=== PATIENT | female | born 1975 | race Caucasian/White ===

== ENCOUNTER 2017-01-25 23:29 | Emergency (ER) | payer OTHER ==
[~2017-01-25 23:29] MED LIST: AMOXIL500 MG PO; BACTRIM DS TABL1 TAB; BACTRIM DS TABL1 TAB PO; CLEOCIN HCL150 MG PO; CYCLOBENZAPRINE10 M1 PO; FLEXERIL10 MG PO; IBUPROFEN200 MG; IBUPROFEN800 MG PO; NORCO 5/325 TAB1 TAB PO; NORFLEX100 MG PO; PREDNISONE10 MG PO; SOMA350 MG PO; TRAMADOL HCL50 M2 PO; TRAMADOL HCL50 MG PO; ULTRAM50 M1 PO; ULTRAM50 MG PO; VICODIN 5/500 T1 TAB; VICODIN 5/500 T1 TAB PO; [UNRECOGNIZED DRUG - OTHER]
[2017-01-25] MEDS ORDERED: NO HOME MEDICATION XX (23:35)
[2017-01-25 23:58] LABS: BASO % 0.3 % (0-2); EOS % 1.4 % (0-7); EOSINOPHIL ABSOLUTE COUNT 0.1 tho/cmm (0.0-0.7); HCT-HEMATOCRIT 48.8 % (34.0-49.0); HGB-HEMOGLOBIN 17.1 gm/dl (12.0-15.5); IMMATURE GRANULOCYTES ABSOLUTE 0.02 tho/cmm (0-0.03); IMMATURE GRANULOCYTES PERCENT 0.2 % (0-0.3); LYMPH % 15.6 % (20-45); LYMPH ABSOLUTE COUNT 1.4 tho/cmm (0.8-4.5); MCH (MEAN CORPUSCULAR HGB) 36.4 pg (28.0-32.0); MCV (MEAN CELL VOLUME) 103.8 fl (82.0-96.0); MEAN PLATELET VOLUME 9.6 cmc (9.4-12.4); MONOCYTE ABSOLUTE COUNT 0.5 tho/cmm (0.0-1.2); NEUTROPHILS % 77.5 % (40-80); PLATELET COUNT 231 tho/cmm (150-450); RED CELL DISTRIBUTION WIDTH 13.9 % (12.4-16.4)
[2017-01-26 00:42] LABS: ALB/GLOB RATIO 0.6 (0.8-2.0); ALBUMIN 3.2 g/dl (3.5-5.0); ALKALINE PHOSPHATASE 239 U/L (33-138); ALT/SGPT 181 U/L (12-78); BILIRUBIN,TOTAL 3.3 mg/dl (0-1.5); BLOOD UREA NITROGEN 2 mg/dl (6-24); CALCIUM 8.4 mg/dl (8.5-10.5); CARBON DIOXIDE-VENOUS 23 mmol/L (22-32); CHLORIDE 99 mmol/l (96-110); CREATININE 0.59 mg/dl (0.50-1.10); GLUCOSE 110 mg/dL (70-110); SODIUM 133 mmol/L (135-145); eGFR VALUE FOR BLACK >90 mL/Min
[2017-01-26 00:45] LABS: ANION GAP 14 mmol/L (0-20); AST/SGOT 312 U/L (10-40); POTASSIUM 3.3 mmol/L (3.7-5.1)
[2017-06-26] MEDS ORDERED: NEURONTIN600 M1 PO (19:18)
[2017-06-26] MEDS ORDERED: ACAMPROSATE CA333 M1 PO (19:18)
== END 2017-01-26 01:54 ==
LOC: EDMED 23:29
PROVIDERS: Emergency Medicine Emergency Medical Services
DX: F10.20 Alcohol dependence, uncomplicated (principal); K21.9 Gastro-esophageal reflux disease without esophagitis; Z90.89 Acquired absence of other organs; Z98.890 Other specified postprocedural states; F17.200 Nicotine dependence, unspecified, uncomplicated
CPT/HCPCS: G0480; J3411; J7030